=== PATIENT | male | born 1975 | race Caucasian/White ===

== ENCOUNTER 2018-05-12 16:04 | Emergency (ER) | payer BC ==
[2018-05-12] MEDS ORDERED: KETOROLAC 30 MG/ML INJ ONE (16:58)
[2018-05-12] MEDS ORDERED: NA CHLORIDE 0.9% 1,000 ML ONE (16:58)
[2018-05-12 17:07] LABS: Absolute Lymphocytes (CBC) 3.2 K/uL (0.7-4.9); Absolute Monocytes 0.7 K/uL (0.1-1.3); Absolute Neutrophil 5.3 K/uL (1.8-8.0); Basophils % 0.3 % (0-1.3); Eosinophils % 2.3 % (0-4.4); Hematocrit 43.7 % (39.6-49.0); Lymphocytes % 34.2 % (15.3-44.8); MCH 32.2 pg (27.0-35.0); MCV 91.8 fL (80-100); MPV 8.5 fL (7.6-11.3); Monocytes % 7.1 % (3.3-12.3); RBC Red Blood Cell Count 4.76 M/uL (4.33-5.43)
[2018-05-12 17:27] LABS: Urine Blood 1+ (NEG); Urine Glucose NEGATIVE (NEG); Urine Protein NEGATIVE (NEG)
[2018-05-12 17:29] LABS: Albumin 3.6 g/dL (3.4-5.0); Bilirubin Direct 0.1 mg/dL (0-0.2); Bilirubin Total 0.2 mg/dL (0.2-1.0); Potassium 3.6 mmol/L (3.5-5.1); Protein, Total 7.2 g/dL (6.4-8.2)
[2018-05-12 17:48] LABS: Urine Amorphous Sediment 1+ /HPF (NONE SEEN); Urine Bacteria <20 /HPF (NONE SEEN); Urine Culture Reflex Order NOT NEEDED; Urine Mucus 1+ /HPF (NONE SEEN)
--- NOTE | 2018-05-12 18:59 | RAD REPORT ---
EXAM DESCRIPTION: CT - Abdomen Pelvis W Contrast - 05/12/2018 6:46 pm CLINICAL HISTORY: Abdominal pain, right lower quadrant pain, fever and vomiting COMPARISON: CT September 2017. TECHNIQUE: Biphasic, helical CT imaging of the abdomen and pelvis was performed following 100 ml non -ionic IV contrast. Oral contrast was given. All CT scans are performed using dose optimization technique as appropriate and may include automated exposure control or mA/KV adjustment according to patient size. FINDINGS: No suspicious findings in the lung bases. Liver shows geographic fatty infiltration pattern. No suspicious liver lesion identifiable. Spleen an d pancreas show no suspicious findings. Gallbladder is tightly contracted. No biliary tree dilatation . Symmetric renal function is seen with no hydronephrosis or suspicious renal mass. No pyelonephritis o r acute renal parenchymal process. Partially filled urinary bladder shows no suspicious finding. Righ t adrenal gland is normal. Left adrenal gland demonstrates a 2.1 centimeter mass. This is probably an adrenal adenoma but does not meet strict criteria. No change from September 2017. No gastric dilatation or wall thickening. No acute small bowel finding. The appendix is normal. No ac sitka GI process seen. No free air, free fluid or inflammatory stranding. No mass or bulky lymphadenopathy. A small 18 mi llimeter fat only umbilical hernia is present. Minimal amount of fat extends approximately 2 cm into the left inguinal canal. No suspicious bony findings. IMPRESSION: Contrast enhanced CT abdomen and pelvis showing no acute or emergent finding. Nonacute findings detailed in the body of the report.
--- NOTE | 2018-05-12 19:03 | ER ---
Nurse's Notes [facility] Name: Cornel Mooney Age: 42 yrs Sex: Male : 1975 Arrival Date: 05/12/2018 Time: 16:07 Bed 23 Private MD: Vasiliy Landa Diagnosis: Hematuria;Abdominal and pelvic pain;Adrenal mass Presentation: 05/12 16:23 Presenting complaint: Patient states: " I was watching TV and I got a really sharp pain ph in my lower stomach." Pt reports R groin pain and nausea, denies vomiting, fever, or urinary symptoms. Transition of care: patient was not received from another setting of care. Onset of symptoms was May 12, 2018. Risk Assessment: Do you want to hurt yourself or someone else? Patient reports no desire to harm self or others. Initial Sepsis Screen: Does the patient meet any 2 criteria? No. Patient's initial sepsis screen is negative. Does the patient have a suspected source of infection? No. Patient's initial sepsis screen is negative. Care prior to arrival: None. 16:23 Method Of Arrival: Ambulatory ph 16:23 Acuity: LORI 3 ph Historical: - Allergies: 16:27 No Known Allergies; ph - Home Meds: 16:27 None [Active]; ph - PMHx: 16:27 None; ph - PSHx: 16:27 lung biopsy; ph - Immunization history:: Adult Immunizations up to date. - Social history:: Smoking status: Patient uses tobacco products, smokes one pack cigarettes per day. - Ebola Screening: : Patient negative for fever greater than or equal to 101.5 degrees Fahrenheit, and additional compatible Ebola Virus Disease symptoms Patient denies exposure to infectious person Patient denies travel to an Ebola-affected area in the 21 days before illness onset. Screenin:30 Abuse screen: Denies threats or abuse. Denies injuries from another. Nutritional aj1 screening: No deficits noted. Tuberculosis screening: No symptoms or risk factors identified. 19:26 Fall Risk None identified. rv Assessment: 16:30 General: Appears in no apparent distress. uncomfortable, Behavior is calm, cooperative, aj1 appropriate for age. Pain: Complains of pain in right lower quadrant Pain does not radiate. Pain currently is 4 out of 10 on a pain scale. Neuro: Level of Consciousness is awake, alert, obeys commands. Cardiovascular: Patient's skin is warm and dry. Respiratory: Airway is patent Respiratory effort is even, unlabored, Respiratory pattern is regular, symmetrical. GI: Abdomen is non-distended, Bowel sounds present X 4 quads. Abd is soft X 4 quads Abdomen is tender to palpation in right lower quadrant Reports nausea, Patient currently denies vomiting. : No signs and/or symptoms were reported regarding the genitourinary system. EENT: No signs and/or symptoms were reported regarding the EENT system. Derm: No signs and/or symptoms reported regarding the dermatologic system. Skin is pink, warm \\T\\ dry. normal. Musculoskeletal: No signs and/or symptoms reported regarding the musculoskeletal system. Circulation, motion, and sensation intact. 17:34 Reassessment: Patient appears in no apparent distress at this time. No changes from 1 previously documented assessment. Patient and/or family updated on plan of care and expected duration. Pain level reassessed. Patient is alert, oriented x 3, equal unlabored respirations, skin warm/dry/pink. 18:30 Reassessment: Patient appears in no apparent distress at this time. No changes from aj1 previously documented assessment. Patient and/or family updated on plan of care and expected duration. Pain level reassessed. Patient is alert, oriented x 3, equal unlabored respirations, skin warm/dry/pink. Vital Signs: 16:26 BP 163 / 87; Pulse 73; Resp 18; Temp 98.2; Pulse Ox 99% on R/A; Weight 104.33 kg; ph Height 6 ft. 2 in. (187.96 cm); Pain 4/10; 19:03 BP 134 / 93; Pulse 65; Resp 18; Pulse Ox 99% on R/A; aj1 16:26 Body Mass Index 29.53 (104.33 kg, 187.96 cm) ph ED Course: 16:07 Patient arrived in ED. rg4 16:07 Vasiliy Landa MD is Private Physician. rg4 16:26 Triage completed. ph 16:27 Arm band placed on. ph 16:29 Liss Cornejo, CLEMENTE is Primary Nurse. aj1 16:29 Dusty Belle NP is PHCP. pm1 16:29 Rashard Wilson MD is Attending Physician. pm1 16:30 Urine collected: clean catch specimen, clear, dina colored, Amount Voided: 50mL. jp3 16:30 No provider procedures requiring assistance completed. aj1 16:44 Oral contrast given. vm2 16:45 Initial lab(s) drawn, by me, sent to lab. Inserted saline lock: 22 gauge in right jp3 forearm, using aseptic technique. Blood collected. 16:54 Placed in gown. Bed in low position. Call light in reach. Side rails up X 1. Lights jp3 dimmed. Warm blanket given. Pillow given. 16:57 Basic Metabolic Panel Sent. jp3 16:57 CBC with Diff Sent. jp3 16:57 Hepatic Function Sent. jp3 16:57 Lipase Sent. jp3 16:57 Urine Microscopic Only Sent. jp3 18:08 PHCP role handed off by Dusty Belle NP jr8 18:08 Sang Valenzuela PA is PHCP. jr8 18:45 CT Abd/Pelvis - W/Contrast In Process Unspecified. EDNJ 19:02 Charli Mcdonald MD is Referral Physician. jr8 19:22 IV discontinued, intact, bleeding controlled, No redness/swelling at site. Pressure jp3 dressing applied. Administered Medications: 17:08 Drug: NS 0.9% 1000 ml Route: IV; Rate: 1000 ml; Site: right antecubital; aj1 19:04 Follow up: IV Status: Completed infusion; IV Intake: 1000ml aj1 17:08 Drug: TORadol 30 mg Route: IVP; Site: right antecubital; aj1 19:03 Follow up: Response: No adverse reaction aj1 Intake: 19:04 IV: 1000ml; Total: 1000ml. aj1 Outcome: 19:03 Discharge ordered by . jr8 19:25 Discharged to home ambulatory. rv 19:25 Condition: good 19:25 Discharge instructions given to patient, Instructed on discharge instructions, follow up and referral plans. medication usage, Demonstrated understanding of instructions, follow-up care, medications, Prescriptions given X 1. 19:26 Patient left the ED. rv Signatures: Dispatcher [employer] EDNJ Liss Cornejo RN RN aj1 Sang Valenzuela PA PA jr8 Melinda Shafer RN RN Dusty Belle NP LINUX UNIX ADMINISTRATOR 1 Anila Hidalgo 4 Deanna Gaines 2 Maxwell Ferreira RN RN rv Raj Stevens jp3
--- NOTE | 2018-05-12 19:03 | EDPHYS ---
Physician Documentation [facility] Name: Cornel Mooney Age: 42 yrs Sex: Male : 1975 Arrival Date: 05/12/2018 Time: 16:07 Bed 23 Private MD: Vasiliy Landa ED Physician Rashard Wilson HPI: 05/12 17:05 This 42 yrs old Male presents to ER via Ambulatory with complaints of pm1 Abdominal Pain. 17:05 The patient presents with abdominal pain right lower quadrant. Onset: The pm1 symptoms/episode began/occurred yesterday. The symptoms do not radiate. Associated signs and symptoms: Pertinent positives: nausea, Pertinent negatives: dysuria, fever, hematuria. The symptoms are described as sharp, stabbing. Modifying factors: The symptoms are alleviated by nothing, the symptoms are aggravated by movement, bending back. Severity of pain: in the emergency department the pain has improved. The patient has not experienced similar symptoms in the past. The patient has not recently seen a physician. Patient with constant pain the waxes and wanes to right lower quadrant. Historical: - Allergies: 16:27 No Known Allergies; ph - Home Meds: 16:27 None [Active]; ph - PMHx: 16:27 None; ph - PSHx: 16:27 lung biopsy; ph - Immunization history:: Adult Immunizations up to date. - Social history:: Smoking status: Patient uses tobacco products, smokes one pack cigarettes per day. - Ebola Screening: : Patient negative for fever greater than or equal to 101.5 degrees Fahrenheit, and additional compatible Ebola Virus Disease symptoms Patient denies exposure to infectious person Patient denies travel to an Ebola-affected area in the 21 days before illness onset. ROS: 17:05 Constitutional: Negative for fever, chills, and weight loss, Eyes: Negative for injury, pm1 pain, redness, and discharge, ENT: Negative for injury, pain, and discharge, Neck: Negative for injury, pain, and swelling, Cardiovascular: Negative for chest pain, palpitations, and edema, Respiratory: Negative for shortness of breath, cough, wheezing, and pleuritic chest pain. 17:05 Back: Negative for injury and pain, : Negative for injury, bleeding, discharge, and swelling, MS/Extremity: Negative for injury and deformity, Skin: Negative for injury, rash, and discoloration, Neuro: Negative for headache, weakness, numbness, tingling, and seizure. 17:05 Abdomen/GI: Positive for abdominal pain, nausea, Negative for vomiting, diarrhea. Exam: 17:05 Constitutional: This is a well developed, well nourished patient who is awake, alert, pm1 and in no acute distress. Head/Face: Normocephalic, atraumatic. Eyes: Pupils equal round and reactive to light, extra-ocular motions intact. Lids and lashes normal. Conjunctiva and sclera are non-icteric and not injected. Cornea within normal limits. Periorbital areas with no swelling, redness, or edema. ENT: Nares patent. No nasal discharge, no septal abnormalities noted. Tympanic membranes are normal and external auditory canals are clear. Oropharynx with no redness, swelling, or masses, exudates, or evidence of obstruction, uvula midline. Mucous membranes moist. Neck: Trachea midline, no thyromegaly or masses palpated, and no cervical lymphadenopathy. Supple, full range of motion without nuchal rigidity, or vertebral point tenderness. No Meningismus. Chest/axilla: Normal chest wall appearance and motion. Nontender with no deformity. No lesions are appreciated. Cardiovascular: Regular rate and rhythm with a normal S1 and S2. No gallops, murmurs, or rubs. Normal PMI, no JVD. No pulse deficits. Respiratory: Lungs have equal breath sounds bilaterally, clear to auscultation and percussion. No rales, rhonchi or wheezes noted. No increased work of breathing, no retractions or nasal flaring. 17:05 Back: No spinal tenderness. No costovertebral tenderness. Full range of motion. Skin: Warm, dry with normal turgor. Normal color with no rashes, no lesions, and no evidence of cellulitis. MS/ Extremity: Pulses equal, no cyanosis. Neurovascular intact. Full, normal range of motion. 17:05 Abdomen/GI: Inspection: abdomen appears normal, Bowel sounds: normal, Palpation: soft, mild abdominal tenderness, in the right lower quadrant, mass, is not appreciated, rebound tenderness, is not appreciated. 17:05 Neuro: Orientation: is normal, Motor: is normal, moves all fours. Vital Signs: 16:26 BP 163 / 87; Pulse 73; Resp 18; Temp 98.2; Pulse Ox 99% on R/A; Weight 104.33 kg; ph Height 6 ft. 2 in. (187.96 cm); Pain 4/10; 19:03 BP 134 / 93; Pulse 65; Resp 18; Pulse Ox 99% on R/A; aj1 16:26 Body Mass Index 29.53 (104.33 kg, 187.96 cm) ph MDM: 16:29 Patient medically screened. pm1 17:07 Data reviewed: vital signs. Data interpreted: Pulse oximetry: on room air is 99 %. pm1 Interpretation: normal. 19:02 Data reviewed: nurses notes, lab test result(s), radiologic studies, CT scan. jr8 Counseling: I had a detailed discussion with the patient and/or guardian regarding: the historical points, exam findings, and any diagnostic results supporting the discharge/admit diagnosis, lab results, radiology results, the need for outpatient follow up, a urologist, to return to the emergency department if symptoms worsen or persist or if there are any questions or concerns that arise at home. Response to treatment: the patient's symptoms have markedly improved after treatment. 05/12 16:29 Order name: Basic Metabolic Panel; Complete Time: 17:40 pm05/12 16:29 Order name: CBC with Diff; Complete Time: 17:40 pm05/12 16:29 Order name: Hepatic Function; Complete Time: 17:40 pm05/12 16:29 Order name: Lipase; Complete Time: 17:40 pm05/12 16:29 Order name: Urine Microscopic Only; Complete Time: 17:50 pm05/12 17:03 Order name: Urine Dipstick--Ancillary (enter results); Complete Time: 17:40 05/12 16:29 Order name: IV Saline Lock; Complete Time: 16:52 pm05/12 16:29 Order name: Labs collected and sent; Complete Time: 16:52 pm05/12 16:29 Order name: Urine Dipstick-Ancillary (obtain specimen); Complete Time: 16:39 pm05/12 16:40 Order name: CT Abd/Pelvis - W/Contrast; Complete Time: 19:00 pm1 Administered Medications: 17:08 Drug: NS 0.9% 1000 ml Route: IV; Rate: 1000 ml; Site: right antecubital; aj1 19:04 Follow up: IV Status: Completed infusion; IV Intake: 1000ml aj 17:08 Drug: TORadol 30 mg Route: IVP; Site: right antecubital; aj1 19:03 Follow up: Response: No adverse reaction aj Disposition: 21:20 Co-signature as Attending Physician, Rashard iWlson MD. Disposition: 05/12/18 19:03 Discharged to Home. Impression: Hematuria, Abdominal and pelvic pain, Adrenal mass. - Condition is Stable. - Discharge Instructions: Abdominal Pain, Adult, Hematuria, Adult. - Prescriptions for Ultracet 37.5- 325 mg Oral Tablet - take 1 tablet by ORAL route every 6 hours - for up to 5 days; do not exceed 8 tablets per day.; 30 tablet. - Medication Reconciliation Form, Thank You Letter, Antibiotic Education, Prescription Opioid Use form. - Follow up: Charli Mcdonald MD; When: 2 - 3 days; Reason: Recheck today's complaints, Continuance of care, Re-evaluation by your physician. - Problem is new. - Symptoms have improved. Signatures: Dispatcher [employer] EDMS Liss Cornejo RN RN aj1 Sang Valenzuela PA PA jr8 Melinda Shafer RN RN Dusty Belle, TOWER TECHNICIAN TOWER TECHNICIAN pm1 Rashard Wilson MD MD Maxwell Ferreira RN RN rv Corrections: (The following items were deleted from the chart) 19:03 19:03 05/12/2018 19:03 Discharged to Home. Impression: Hematuria; Abdominal and pelvic jr8 pain; Andernal mass. Condition is Stable. Forms are Medication Reconciliation Form, Thank You Letter, Antibiotic Education, Prescription Opioid Use. Follow up: Charli Mcdonald; When: 2 - 3 days; Reason: Recheck today's complaints, Continuance of care, Re-evaluation by your physician. Problem is new. Symptoms have improved. jr8 19:26 19:03 05/12/2018 19:03 Discharged to Home. Impression: Hematuria; Abdominal and pelvic rv pain; Adrenal mass. Condition is Stable. Forms are Medication Reconciliation Form, Thank You Letter, Antibiotic Education, Prescription Opioid Use. Follow up: Charli Mcdonald; When: 2 - 3 days; Reason: Recheck today's complaints, Continuance of care, Re-evaluation by your physician. Problem is new. Symptoms have improved. jr8
== END 2018-05-12 19:26 | disposition home or self-care (01) ==
LOC: ER 16:04
DX: E27.9 Disorder of adrenal gland, unspecified (principal); R31.9 Hematuria, unspecified; F17.210 Nicotine dependence, cigarettes, uncomplicated
CPT/HCPCS: 36415; 74177; 80048; 80076; 81003; 81015; 83690; 85025; 96361; 96374; 99284; J7030; Q9967

== ENCOUNTER 2018-11-01 16:51 | Observation (INO) | payer BC ==
[2018-11-01 17:31] LABS: Absolute Lymphocytes (CBC) 3.2 K/uL (0.7-4.9); Absolute Monocytes 0.9 K/uL (0.1-1.3); Absolute Neutrophil 5.3 K/uL (1.8-8.0); Basophils % 0.6 % (0-1.3); Eosinophils % 2.1 % (0-4.4); Hematocrit 45.4 % (39.6-49.0); Lymphocytes % 33.5 % (15.3-44.8); MPV 8.7 fL (7.6-11.3); Monocytes % 8.9 % (3.3-12.3); RBC Red Blood Cell Count 4.99 M/uL (4.33-5.43)
[2018-11-01 17:39] LABS: Protime INR 1.03
--- NOTE | 2018-11-01 17:44 | ER ---
Nurse's Notes [facility] Name: Cornel Mooney Age: 43 yrs Sex: Male : 1975 Arrival Date: 11/01/2018 Time: 16:52 Bed 23 Private MD: Vasiliy Landa Diagnosis: Other chest pain;Essential (primary) hypertension;Tobacco use;Tobacco abuse counseling Presentation: 11/01 16:54 Presenting complaint: Right sided chest pain that radiates across chest to left arm, hb nausea, headache and RUQ pain since lunchtime today. Transition of care: patient was not received from another setting of care. Onset of symptoms was November 01, 2018. Risk Assessment: Do you want to hurt yourself or someone else? Patient reports no desire to harm self or others. Care prior to arrival: None. 16:54 Method Of Arrival: Ambulatory hb 16:54 Acuity: LORI 3 hb 16:56 Initial Sepsis Screen: Does the patient meet any 2 criteria? No. Patient's initial hb sepsis screen is negative. Does the patient have a suspected source of infection? No. Patient's initial sepsis screen is negative. Historical: - Allergies: 16:55 No Known Allergies; hb - Home Meds: 16:55 None [Active]; hb - PMHx: 16:55 None; hb - PSHx: 16:55 lung biopsy; hb - Immunization history:: Adult Immunizations up to date. - Social history:: Smoking status: Patient uses tobacco products, 1.5PPD. - Ebola Screening: : No symptoms or risks identified at this time. - Family history:: not pertinent. Screenin:11 Abuse screen: Denies threats or abuse. Nutritional screening: No deficits noted. la1 Tuberculosis screening: No symptoms or risk factors identified. Fall Risk None identified. Assessment: 17:10 General: Appears in no apparent distress. Behavior is calm, cooperative. Pain: la1 Complains of pain in chest Pain does not radiate. Pain currently is 5 out of 10 on a pain scale. Quality of pain is described as heavy, Pain began 1 day ago. Neuro: Level of Consciousness is awake, alert, obeys commands, Oriented to person, place, time, situation. Cardiovascular: Capillary refill < 3 seconds Patient's skin is warm and dry. Respiratory: Airway is patent Respiratory effort is even, unlabored, Respiratory pattern is regular, symmetrical, Breath sounds are clear bilaterally. GI: No signs and/or symptoms were reported involving the gastrointestinal system. 18:10 Reassessment: Patient appears in no apparent distress at this time. No changes from la1 previously documented assessment. Patient and/or family updated on plan of care and expected duration. Pain level reassessed. Patient is alert, oriented x 3, equal unlabored respirations, skin warm/dry/pink. Vital Signs: 16:55 BP 146 / 91; Pulse 77; Resp 16; Temp 97.8; Pulse Ox 98% on R/A; Pain 9/10; hb 17:57 Weight 113.4 kg; la1 18:10 Pulse 72; Resp 18; Pulse Ox 98% on R/A; la1 19:17 BP 108 / 72; Pulse 64; Resp 18; Pulse Ox 98% on R/A; la1 ED Course: 16:52 Patient arrived in ED. as 16:52 Vasiliy Landa MD is Private Physician. as 16:55 Triage completed. hb 16:55 Arm band placed on. hb 17:09 Nilson Aceves, CLEMENTE is Primary Nurse. la1 17:09 Dominic Seymour MD is Attending Physician. param 17:11 Bed in low position. Call light in reach. Side rails up X 1. school lunch monitor on. Pulse la1 ox on. NIBP on. 17:11 No provider procedures requiring assistance completed. Inserted saline lock: 20 gauge la1 in right antecubital area, using aseptic technique. Patient maintains SpO2 saturation greater than 95% on room air. 17:43 Gabriel Burnett DO is Hospitalizing Provider. param 17:53 XRAY Chest (1 view) In Process Unspecified. EDMS 19:53 Patient admitted, IV remains in place. la1 Administered Medications: 18:10 Drug: Aspirin Chewable Tablet 324 mg Route: PO; la1 19:53 Follow up: Response: No adverse reaction la1 18:10 Drug: Lopressor 25 mg Route: PO; la1 19:53 Follow up: Response: No adverse reaction la1 18:10 Drug: Lovenox 1 mg/kg Route: Sub-Q; Site: right lower abdomen; la1 19:53 Follow up: Response: No adverse reaction la1 Outcome: 17:44 Decision to Hospitalize by Provider. param 19:52 Admitted to Med/surg accompanied by karen via wheelchair. la1 19:52 Condition: stable 19:52 Instructed on the need for admit. 19:53 Patient left the ED. la1 Signatures: Dispatcher [employer] EDDominic Harden MD MD cha Martinez, Amelia as Attema, Lee, RN RN la1 Rosemary Morales RN RN hb Corrections: (The following items were deleted from the chart) 16:56 16:54 Presenting complaint: Right sided chest pain that radiates across chest and left hb arm, nausea, headache and RUQ pain since lunchtime today. hb
--- NOTE | 2018-11-01 17:45 | EDPHYS ---
Physician Documentation [facility] Name: Cornel Mooney Age: 43 yrs Sex: Male : 1975 Arrival Date: 11/01/2018 Time: 16:52 Bed 23 Private MD: Vasiliy Landa ED Physician Dominic Seymour HPI: 11/01 17:39 This 43 yrs old Male presents to ER via Ambulatory with complaints of Chest param Pain, Headache, Nausea. 17:39 The patient or guardian reports chest pain that is located primarily in the substernal param area, anterior chest wall, bilaterally. Onset: this morning. The pain radiates to both arms. Associated signs and symptoms: Pertinent positives: dizziness, lightheadedness. The chest pain is described as a heaviness. Duration: The patient or guardian reports a single episode, that is now resolved. Modifying factors: The symptoms are alleviated by nothing. the symptoms are aggravated by nothing. Severity of pain: At its worst the pain was moderate in the emergency department the pain has resolved and did so just prior to arrival. The patient has experienced similar episodes in the past, several times. Historical: - Allergies: 16:55 No Known Allergies; hb - Home Meds: 16:55 None [Active]; hb - PMHx: 16:55 None; hb - PSHx: 16:55 lung biopsy; hb - Immunization history:: Adult Immunizations up to date. - Social history:: Smoking status: Patient uses tobacco products, 1.5PPD. - Ebola Screening: : No symptoms or risks identified at this time. - Family history:: not pertinent. ROS: 17:39 Constitutional: Negative for fever, chills, and weight loss, Eyes: Negative for injury, param pain, redness, and discharge, ENT: Negative for injury, pain, and discharge, Neck: Negative for injury, pain, and swelling, Respiratory: Negative for shortness of breath, cough, wheezing, and pleuritic chest pain, Abdomen/GI: Negative for abdominal pain, nausea, vomiting, diarrhea, and constipation, Back: Negative for injury and pain, : Negative for injury, bleeding, discharge, and swelling, MS/Extremity: Negative for injury and deformity, Skin: Negative for injury, rash, and discoloration, Neuro: Negative for headache, weakness, numbness, tingling, and seizure, Psych: Negative for depression, anxiety, suicide ideation, homicidal ideation, and hallucinations, Allergy/Immunology: Negative for hives, rash, and allergies, Endocrine: Negative for neck swelling, polydipsia, polyuria, polyphagia, and marked weight changes, Hematologic/Lymphatic: Negative for swollen nodes, abnormal bleeding, and unusual bruising. 17:39 Cardiovascular: Positive for chest pain, of the chest. Exam: 17:39 Constitutional: This is a well developed, well nourished patient who is awake, alert, param and in no acute distress. Head/Face: Normocephalic, atraumatic. Eyes: Pupils equal round and reactive to light, extra-ocular motions intact. Lids and lashes normal. Conjunctiva and sclera are non-icteric and not injected. Cornea within normal limits. Periorbital areas with no swelling, redness, or edema. ENT: Nares patent. No nasal discharge, no septal abnormalities noted. Tympanic membranes are normal and external auditory canals are clear. Oropharynx with no redness, swelling, or masses, exudates, or evidence of obstruction, uvula midline. Mucous membranes moist. Neck: Trachea midline, no thyromegaly or masses palpated, and no cervical lymphadenopathy. Supple, full range of motion without nuchal rigidity, or vertebral point tenderness. No Meningismus. Chest/axilla: Normal chest wall appearance and motion. Nontender with no deformity. No lesions are appreciated. Cardiovascular: Regular rate and rhythm with a normal S1 and S2. No gallops, murmurs, or rubs. Normal PMI, no JVD. No pulse deficits. Abdomen/GI: Soft, non-tender, with normal bowel sounds. No distension or tympany. No guarding or rebound. No evidence of tenderness throughout. Back: No spinal tenderness. No costovertebral tenderness. Full range of motion. Male : Normal genitalia with no discharge or lesions. Skin: Warm, dry with normal turgor. Normal color with no rashes, no lesions, and no evidence of cellulitis. MS/ Extremity: Pulses equal, no cyanosis. Neurovascular intact. Full, normal range of motion. Neuro: Awake and alert, GCS 15, oriented to person, place, time, and situation. Cranial nerves II-XII grossly intact. Motor strength 5/5 in all extremities. Sensory grossly intact. Cerebellar exam normal. Normal gait. Psych: Awake, alert, with orientation to person, place and time. Behavior, mood, and affect are within normal limits. 17:39 Respiratory: the patient does not display signs of respiratory distress, Respirations: normal, Breath sounds: rhonchi, that are mild, are scattered, Respiratory rate: 16 17:43 Musculoskeletal/extremity: DVT Exam: No signs of deep vein thrombosis. no pain, no param swelling, no tenderness, negative Homans' sign noted on exam, no appreciated bluish discoloration, no erythema, no increased warmth. Vital Signs: 16:55 BP 146 / 91; Pulse 77; Resp 16; Temp 97.8; Pulse Ox 98% on R/A; Pain 9/10; hb 17:57 Weight 113.4 kg; la1 18:10 Pulse 72; Resp 18; Pulse Ox 98% on R/A; la1 19:17 BP 108 / 72; Pulse 64; Resp 18; Pulse Ox 98% on R/A; la1 MDM: 17:09 Patient medically screened. [facility] 17:39 Data reviewed: vital signs, nurses notes, lab test result(s), EKG, radiologic studies, param plain films. 11/01 17:09 Order name: Basic Metabolic Panel; Complete Time: 18:06 11/01 17:09 Order name: CBC with Diff; Complete Time: 18:06 11/01 17:09 Order name: LFT's; Complete Time: 18:06 11/01 17:09 Order name: Magnesium; Complete Time: 18:06 11/01 17:09 Order name: NT PRO-BNP; Complete Time: 18:06 11/01 17:09 Order name: PT-INR; Complete Time: 18:06 11/01 17:09 Order name: Troponin (emerg Dept Use Only); Complete Time: 18:06 11/01 17:09 Order name: XRAY Chest (1 view) 11/01 17:09 Order name: EKG; Complete Time: 17:11 11/01 17:09 Order name: Cardiac monitoring; Complete Time: 17:10 11/01 17:09 Order name: Lipase; Complete Time: 18:06 11/01 17:09 Order name: EKG - Nurse/Tech; Complete Time: 17:10 11/01 17:09 Order name: IV Saline Lock; Complete Time: 17:10 11/01 17:09 Order name: Labs collected and sent; Complete Time: 17:10 11/01 17:09 Order name: O2 Per Protocol; Complete Time: 17:10 11/01 17:09 Order name: O2 Sat Monitoring; Complete Time: 17:10 la1 Administered Medications: 18:10 Drug: Aspirin Chewable Tablet 324 mg Route: PO; la1 19:53 Follow up: Response: No adverse reaction la1 18:10 Drug: Lopressor 25 mg Route: PO; la1 19:53 Follow up: Response: No adverse reaction la1 18:10 Drug: Lovenox 1 mg/kg Route: Sub-Q; Site: right lower abdomen; la1 19:53 Follow up: Response: No adverse reaction la1 Disposition: 11/01/18 17:44 Hospitalization ordered by Gabriel Burnett for Observation. Preliminary diagnosis are Other chest pain, Essential (primary) hypertension, Tobacco use, Tobacco abuse counseling. - Bed requested for Telemetry/MedSurg (observation). - Status is Observation. la1 - Condition is Stable. - Problem is new. - Symptoms have improved. UTI on Admission? No Signatures: Dispatcher [employer] EDDominic Harden MD MD cha Solis, Maria ms Attema, Lee, RN RN la1 Rosemary Morales RN RN Corrections: (The following items were deleted from the chart) 18:19 17:44 Hospitalization Ordered by Gabriel Burnett DO for Observation. Preliminary ms diagnosis is Other chest pain; Essential (primary) hypertension; Tobacco use; Tobacco abuse counseling. Bed requested for Telemetry/MedSurg (observation). Status is Observation. Condition is Stable. Problem is new. Symptoms have improved. UTI on Admission? No. param 19:53 18:19 11/01/2018 17:44 Hospitalization Ordered by Gabriel Burnett DO for Observation. la1 Preliminary diagnosis is Other chest pain; Essential (primary) hypertension; Tobacco use; Tobacco abuse counseling. Bed requested for Telemetry/MedSurg (observation). Status is Observation. Condition is Stable. Problem is new. Symptoms have improved. UTI on Admission? No. ms
[2018-11-01 17:52] LABS: ALT/SGPT 38 U/L (12-78); AST/SGOT 18 U/L (15-37); Albumin 3.7 g/dL (3.4-5.0); Alkaline Phosphatase 80 U/L (45-117); BUN Blood Urea Nitrogen 16 mg/dL (7-18); Bicarbonate 28 mmol/L (21-32); Bilirubin Direct < 0.1 mg/dL (0-0.2); Bilirubin Total 0.2 mg/dL (0.2-1.0); Glucose Level 93 mg/dL (74-106); Lipase 84 U/L (73-393); Magnesium 2.3 mg/dL (1.8-2.4); NT PRO-BNP 25 pg/mL (<125); Potassium 3.7 mmol/L (3.5-5.1); Protein, Total 7.2 g/dL (6.4-8.2); Sodium Level 141 mmol/L (136-145); Troponin (Emerg Dept Use Only) < 0.02 ng/mL (0.0-0.045)
--- NOTE | 2018-11-01 18:00 | P.HP ---
Certification for Inpatient Patient admitted to: Observation With expected LOS: <2 Midnights Patient will require the following post-hospital care: None Practitioner: I am a practitioner with admitting privileges, knowledge of patient current condition, hospital course, and medical plan of care. Services: Services provided to patient in accordance with Admission requirements found in Title 42 Section 412.3 of the Code of Federal Regulations Patient History Date of Service: 11/01/18 Primary Care Provider: Dr. Landa Reason for admission: Chest pain History of Present Illness: 43-year-old male presented to the emergency room with chest pain. Patient reports chest pain that comes and goes. He reported some chest pain today at rest. It was associated with some headaches and dizziness. He also felt some numbness to his face. He rated the pain about a 9/10. It was to the upper right and left chest area. He reports that he has had this in the past. He has been to the ER for this. He has not followed up with cardiology for further evaluation. In the ER patient evaluated. Initial EKG shows no significant ST changes. Lab pending at this time. Patient was admitted for observation. When I saw the patient the ER, he appeared comfortable. He does report a history of tobacco abuse. 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 Allergies No Known Allergies Allergy (Unverified 09/17/17 20:29) Home medications list reviewed: Yes - Past Medical/Surgical History -: Tobacco abuse -: Left upper lung lobectomy secondary to fungal infection -: Hernia repair Psychosocial/ Personal History: Patient is . He has 1 child. He works construction - Family History Father -: Cancer (Esophageal cancer) Mother -: Cancer (Ovarian cancer) - Social History Smoking Status: Current every day smoker Counseled patient to stop smoking for: less than 10 minutes Smoking therapy provided: Yes Patient receptive to therapy: Yes Alcohol use: No CD- Drugs: No Caffeine use: No Place of Residence: Home Review of Systems General: As per HPI Eyes: Unremarkable ENT: Unremarkable Respiratory: Shortness of Breath, As per HPI Cardiovascular: Chest Pain, Palpitations, Light Headedness, As per HPI Gastrointestinal: Unremarkable Genitourinary: Unremarkable Musculoskeletal: Unremarkable Integumentary: Unremarkable Neurological: Numbness, As per HPI Lymphatics: Unremarkable Physical Examination - Physical Exam General: Alert, In no apparent distress, Oriented x3, Cooperative HEENT: Atraumatic, Normocephalic, PERRLA, Mucous membr. moist/pink Neck: Supple, No Thyromegaly Respiratory: Clear to auscultation bilaterally, Normal air movement Cardiovascular: Normal pulses, Regular rate/rhythm Gastrointestinal: Normal bowel sounds, Soft and benign, Non-distended, No tenderness, No masses, No rebound, No guarding Musculoskeletal: No erythema, No tenderness, No warmth Integumentary: No tenderness/swelling, No erythema, No warmth, No cyanosis Neurological: Normal speech, Normal strength at 5/5 x4 extr, Normal tone, Normal affect - Studies Laboratory Data (last 24 hrs) 11/01/18 17:13: PT 12.1, INR 1.03 11/01/18 17:13: WBC 9.6, Hgb 15.7, Hct 45.4, Plt Count 235 11/01/18 17:13: Sodium 141, Potassium 3.7, BUN 16, Creatinine 1.09, Glucose 93, Magnesium 2.3, Total Bilirubin 0.2, AST 18, ALT 38, Alkaline Phosphatase 80, Lipase 84 Assessment and Plan - Plan Impression: Atypical chest pain 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 Will continue to monitor telemetry and cardiac enzymes. Patient is had a history of this in the past. He has felt to see Cardiology. Will consult cardiology for further recommendation. Will order echocardiogram and stress test to further evaluate. This may be possibly related to his prior lobectomy. Await further recommendation from Cardiology. I will turn the service over to Dr. Marquez tomorrow. I will go over the plan of care with her. History of left upper lung lobectomy for fungal infection: Overall stable. Tobacco abuse: Encouraged tobacco cessation. Discharge Plan: Home Plan to discharge in: 24 Hours - Advance Directives Does patient have a Living Will: No Does patient have a Durable POA for Healthcare: No - Code Status/Comfort Care Code Status Assessed: Yes (Patient full code.) Time Spent Managing Pts Care (In Minutes): 55
[2018-11-01] MEDS ORDERED: ASPIRIN 81 MG CHEWABLE TABLET ONE (18:06)
[2018-11-01] MEDS ORDERED: METOPROLOL TAR 25 MG TAB ONE (18:07)
--- NOTE | 2018-11-01 18:07 | RAD REPORT ---
EXAM DESCRIPTION: [place] Single View11/01/2018 5:54 pm CLINICAL HISTORY: Chest pain COMPARISON: September 2017 FINDINGS: The lungs appear clear of acute infiltrate. The heart is normal size IMPRESSION: No acute abnormalities displayed
[2018-11-01] MEDS ORDERED: ENOXAPARIN 100 MG/ML SYR SQ ONE (18:10)
[2018-11-01] MEDS ORDERED: TRAMADOL HCL 50 MG TAB PO PRN (20:06)
[2018-11-01] MEDS ORDERED: MORPHINE 2 MG/ML SYR IV PRN (20:06)
[2018-11-01] MEDS ORDERED: HYDRALAZINE HCL 20 MG/ML VIAL IV PRN (20:06)
[2018-11-01] MEDS ORDERED: ACETAMINOPHEN 500 MG TAB PO PRN (20:06)
[2018-11-01] MEDS ORDERED: NITROGLYCERIN 0.4 MG/TAB SL PRN (20:06)
[2018-11-01] MEDS ORDERED: ONDANSETRON 4 MG/2 ML VIAL IV PRN (20:06)
[2018-11-01] MEDS ORDERED: IPRATROPIUM BROM 0.5MG/2.5ML NEB PRN (20:06)
[2018-11-01] MEDS ORDERED: ALBUTEROL 2.5 MG/3 ML NEB SOL NEB PRN (20:06)
[2018-11-01 21:27] LABS: CKMB Creatine Kinase MB 1.5 ng/mL (0.3-3.6); Creatine Phosphokinase 64 U/L (39-308); Troponin I < 0.02 ng/mL (0.0-0.045)
[2018-11-01 21:34] LABS: Thyroid Stimulating Hormone 2.83 uIU/mL (0.360-3.740)
[2018-11-01 22:04] LABS: Urine Appearance CLEAR; Urine Bilirubin NEGATIVE (NEG); Urine Blood TRACE (NEG); Urine Color YELLOW; Urine Glucose NEGATIVE (NEG); Urine Protein NEGATIVE (NEG); Urine Urobilinogen 0.2 mg/dL (0.2-1.0)
[2018-11-01 22:12] LABS: Urine Microscopic Reflex ORDER UMIC
[2018-11-01] MEDS: FAMOTIDINE 20 MG TAB PO SCH (22:33)
[2018-11-01 22:43] LABS: Urine Bacteria <20 /HPF (NONE SEEN); Urine Culture Reflex Order NOT NEEDED; Urine RBC <5 /HPF (NONE SEEN)
--- NOTE | 2018-11-01 22:44 | EKG ---
Test Date: 2018-11-01 Test Time: 16:57:58 Chaser Apprentice: SWG MEASUREMENT RESULTS: Intervals: Rate: 80 OR: 142 QRSD: 88 QT: 370 QTc: 426 [place]: P: 55 OR: 142 QRS: 52 T: 46 INTERPRETIVE STATEMENTS: Normal sinus rhythm Normal ECG Compared to ECG 09/17/2017 18:01:39 No significant changes Electronically Signed On 11-01-18 22:43:10 MC KAY MACHINE OPERATOR by Chirag Villarreal
[2018-11-02 04:22] LABS: Absolute Lymphocytes (CBC) 3.6 K/uL (0.7-4.9); Absolute Monocytes 0.9 K/uL (0.1-1.3); Basophils % 0.5 % (0-1.3); Eosinophils % 3.7 % (0-4.4); Hematocrit 46.9 % (39.6-49.0); Lymphocytes % 40.3 % (15.3-44.8); Monocytes % 10.6 % (3.3-12.3); RBC Red Blood Cell Count 5.15 M/uL (4.33-5.43)
[2018-11-02 04:45] LABS: BUN Blood Urea Nitrogen 15 mg/dL (7-18); Bicarbonate 26 mmol/L (21-32); CKMB Creatine Kinase MB 1.5 ng/mL (0.3-3.6); Creatine Phosphokinase 56 U/L (39-308); Glucose Level 109 mg/dL (74-106); HDL Cholesterol 33 mg/dL (40-60); LDL Cholesterol, Calculated 78 (<130); Magnesium 2.4 mg/dL (1.8-2.4); Potassium 4.3 mmol/L (3.5-5.1); Sodium Level 143 mmol/L (136-145); Troponin I < 0.02 ng/mL (0.0-0.045)
[2018-11-02] MEDS ORDERED: INFLUENZA VACCINE (for 3y+) 0.5 ML DOSE IMVAC ONE ×2 (08:00→14:00)
[2018-11-02] MEDS ORDERED: PNEUMOCOCCAL VACCINE 0.5 ML IMVAC ONE (08:00)
[2018-11-02] MEDS ORDERED: REGADENOSON 0.4 MG/5 ML SYR IV ONE (08:05)
[2018-11-02] MEDS: FAMOTIDINE 20 MG TAB PO SCH (08:12)
[2018-11-02] MEDS ORDERED: ENOXAPARIN 40 MG/0.4 ML SQ SCH (09:00)
[2018-11-02] MEDS ORDERED: ASPIRIN EC 81 MG TAB PO SCH (09:00)
--- NOTE | 2018-11-02 10:59 | CON ---
CARDIOLOGY CONSULT Chief Complaint: Chest pain. History Of Present Illness: The patient is a gentleman, who has been having chest pain off and on. He has had several evaluations with EKGs, Cardiology visit. Never had a stress test. His chest pain is not related to exertion. He is a heavy tobacco user. Does not have diabetes, hypertension, or dy slipidemia. He has never had myocardial infarction, stroke or any vascular disease. Physical Examination: General: He is 6 feet 3 inches, weight 250 pounds, obese, alert, oriented, pleasant, not in distress . Lungs: Clear. Cardiac exam: Normal. Abdomen: Soft. Extremities: Normal. Physical exam is completely normal. Assessment And Plan: He will have a nuclear stress test with exercise and echocardiogram later today . If he has any abnormality, we will do a cardiac cath. JB Voice ID: [id number] Report ID: [id number]
--- NOTE | 2018-11-02 14:53 | RAD REPORT ---
EXAM DESCRIPTION: NM - Rest Stress Cardiac Imaging - 11/02/2018 2:45 pm CLINICAL HISTORY: CP Chest pain. COMPARISON: No comparisons TECHNIQUE: The patient was administered approximately 10mCi of Tc 99m Sestamibi prior to resting SPE CT imaging of the heart. The patient was then administered approximately 30 mCi of Tc 99m Sestamibi f ollowing exercise or pharmacologic stress. Multiplanar SPECT images were reviewed. FINDINGS: No stress induced ischemic defect is seen to suggest stress induced ischemia. No fixed def ect is seen to suggest hibernating myocardium or scarred myocardium. The end diastolic volume is 121 ml, the end systolic volume is 50 ml, and the ejection fraction is 59 %. IMPRESSION: No stress induced ischemia.
--- NOTE | 2018-11-02 15:30 | ECHO ---
HEIGHT: 6 ft 3 in WEIGHT: 250 lb 0 oz DATE OF STUDY: 11/02/[address]: Gabriel Burnett DO 2-DIMENSIONAL: YES M.MODE: YES DOPPLER: YES COLOR FLOW: YES TDS: NO PORTABLE: NO DEFINITY: NO BUBBLE STUDY: NO DIAGNOSIS: CHEST PAIN CARDIAC HISTORY: CATHERIZATION: NO SURGERY: NO PROSTHETIC VALVE: NO PACEMAKER: NO MEASUREMENTS (cm) DIASTOLIC (NORMALS) SYSTOLIC (NORMALS) IVSd 0.8 (0.6-1.2) LA Diam 3.5 (1.9-4.0) LVEF 52% LVIDd 5.0 (3.5-5.7) LVIDs 3.7 (2.0-3.5) %FS 27% LVPWd 1.1 (0.6-1.2) Ao Diam 3.3 (2.0-3.7) 2 DIMENSIONAL ASSESSMENT: RIGHT ATRIUM: NORMAL LEFT ATRIUM: NORMAL RIGHT VENTRICLE: NORMAL LEFT VENTRICLE: NORMAL TRICUSPID VALVE: NORMAL MITRAL VALVE: NORMAL PULMONIC VALVE: NORMAL AORTIC VALVE: NORMAL PERICARDIAL EFFUSION: NONE AORTIC ROOT: NORMAL LEFT VENTRICULAR WALL MOTION: NORMAL. DOPPLER/COLOR FLOW: NORMAL. COMMENTS: NORMAL 2D ECHO WITH DOPPLER. TECHNOLOGIST: ALFREDO AYALA
--- NOTE | 2018-11-02 15:35 | TREADMILL ---
70% H.R.: 123 85% H.R.: 150 90% H.R.: 158 100% H.R.: 176 DX: CHEST PAIN Date of Study: 11/02/18 Ht: 6 3 Wt: 250 lb 0 oz Consulting Physician: NIGHAT MEDICATIONS: TYLENOL, PROVENTIL, ASPIRIN, LOVENOX, APRESOLINE HISTORY: 43 YEAR OLD MALE HERE FOR CHEST PAIN. HISTORY OF LEFT 1/3 TOP LUNG LOBECTOMY. PHYSICIAL EXAMINATION: RESTING B.P.: 126/93 RESTING H.R.: 60 RESTING EKG: NORMAL PROTOCOL: OMKAR EXERCISE TIME: 11:19 MAXIMUM HEART RATE: 143 [*] % OF PREDICTED B.P. AT PEAK STRESS: 170/95 135/86 H.R. AT 1 MINUTE POST EXERCISE: 125 IMPRESSION: MYOVIEW STRESS TEST PERFORMED. CARDIOLITE INJECTED PER PROTOCOL. NO ARRHYTHMIAS. COMPLAINTS OF 2/10 RIGHT UPPER CHEST ACHE PRIOR TO TEST THAT WAS RELIEVED POST TEST. SEE NUCLEAR MEDICINE REPORT. NO ST DEPRESSION WITH STRESS.
--- NOTE | 2018-11-02 17:55 | P.SSS ---
Patient History Date of Service: 11/02/18 Primary Care Provider: Dr. 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 moist/pink, EOMI, Sclerae nonicteric Neck: Supple, 2+ carotid pulse no bruit, No LAD, Without JVD or thyroid abnormality Respiratory: Clear to auscultation bilaterally, Normal air movement Cardiovascular: Regular rate/rhythm, Normal S1 S2 Gastrointestinal: Normal bowel sounds, No tenderness Musculoskeletal: No tenderness Integumentary: No rashes Neurological: Normal gait, Normal speech, Normal strength at 5/5 x4 extr, Normal tone, Normal affect Lymphatics: No axilla or inguinal lymphadenopathy - Diagnosis (Problem(s)) (1) Atypical chest pain Status: Acute (2) Hyperlipidemia Status: Chronic Qualifiers: Hyperlipidemia type: mixed hyperlipidemia Qualified Code(s): E78.2 - Mixed hyperlipidemia Treatment Summary: Overall during the hospital stay patient remained stable Patient was initially admitted to the hospital for atypical chest pain. Troponin x2 was negative. EKG was negative. Cardiology was consulted. Who recommended patient get a echocardiogram and stress test which were both negative for acute coronary syndrome. Patient then was discharged home under stable condition. Patient was given a prescription for Lipitor for his hyperlipidemia - Disposition Disposition: ROUTINE DISCHARGE Condition: GOOD
== END 2018-11-02 15:15 | disposition home or self-care (01) ==
LOC: ER 16:51 → ERHOLD 17:57 → 4TH 19:45
PROVIDERS: ADMIT Family Medicine; ATTEND Family Medicine
DX: R07.89 Other chest pain (principal); E78.2 Mixed hyperlipidemia; F17.210 Nicotine dependence, cigarettes, uncomplicated; Z23 Encounter for immunization
CPT/HCPCS: 36415; 71045; 78452; 80048; 80061; 80076; 81003; 81015; 82550; 82553; 83690; 83735; 83880; 84439; 84443; 84484; 85025; 85610; 93005; 93017; 93306; 96372; 99285; A9500; G0008; G0378; J1650; J2785; Q2035